=== PATIENT | female | born 1965 ===

== ENCOUNTER 2021-02-03 08:38 | Outpatient (CLI) | payer BC | END 2021-02-03 08:39 | disposition home or self-care (01) | LOC: CSHMAMMO 08:38 | PROVIDERS: ATTEND Student in an Organized Health Care Education/Training Program | DX: Z12.31 Encounter for screening mammogram for malignant neoplasm of breast (principal); N64.89 Other specified disorders of breast | CPT/HCPCS: 77063; 77067; G0279 ==